=== PATIENT | female | born 1985 | race Caucasian/White ===

== ENCOUNTER → 2021-08-16 | Outpatient (CLI) | payer OTHER ==
--- NOTE | 2021-08-16 09:46 | XR ---
EXAMINATION TYPE: XR foot complete LT DATE OF EXAM: 08/16/2021 COMPARISON: NONE HISTORY: Pain TECHNIQUE: Three views are submitted. FINDINGS: The osseous structures are intact. There is no acute fracture or dislocation. Joint spaces are p reserved. IMPRESSION: 1. No acute fracture or dislocation. If symptoms persist, follow-up exam in 7 to 10 days could be ob tained.
== END | disposition home or self-care (01) ==
LOC: RADXRMAIN 09:27
PROVIDERS: ATTEND Internal Medicine
DX: M79.672 Pain in left foot (principal)

== ENCOUNTER → 2021-10-17 | Outpatient (CLI) | payer OTHER | END | disposition home or self-care (01) | LOC: LABWHC1 08:43 | PROVIDERS: ATTEND Internal Medicine | DX: Z53.9 Procedure and treatment not carried out, unspecified reason (principal) ==

== ENCOUNTER → 2021-12-19 | Outpatient (CLI) | payer OTHER ==
--- NOTE | 2021-12-19 09:54 | XR ---
EXAMINATION TYPE: XR sinus DATE OF EXAM: 12/19/2021 CLINICAL HISTORY: Facial pain , headache. TECHNIQUE: Sumner, Tilley, and lateral image of the skull are obtained. COMPARISON: None. FINDINGS: There is evidence of mucosal thickening involving the maxillary and frontal sinuses. No air -fluid level seen.. Orbital floors and german are intact. Facial bones appear intact. IMPRESSION: Correlate for chronic sinusitis
== END | disposition home or self-care (01) ==
LOC: RADXRMAIN 09:29
PROVIDERS: ATTEND Internal Medicine Infectious Disease
DX: J32.9 Chronic sinusitis, unspecified (principal)
CPT/HCPCS: 70220

== ENCOUNTER → 2022-04-15 | Outpatient (CLI) | payer BC | END | disposition home or self-care (01) | LOC: LABWHC1 08:56 | PROVIDERS: ATTEND Internal Medicine Infectious Disease | DX: U07.1 COVID-19 (principal); D68.9 Coagulation defect, unspecified | CPT/HCPCS: 36415; 85379; 86769 ==